=== PATIENT | female | born 1950 | race Caucasian/White ===

== ENCOUNTER 2016-10-20 18:17 | Inpatient (IN) | payer OTHER ==
[2016-10-20] MEDS ORDERED: NORCO-5 PO PRN (20:51)
[2016-10-20 21:12] LABS: HEMATOCRIT 33.1 % (37.0-47.0); HEMOGLOBIN 10.8 g/dL (12.0-16.0); MCH 29.1 PG (27-31); MCHC 32.6 g/dL (33-37); MCV 89.2 FL (81-99); MPV 8.8 FL (7.4-10.4); RBC 3.71 XMIL (4.2-5.4)
[2016-10-20 22:18] LABS: AGAP 11; ALBUMIN 3.9 g/dL (3.5-5.0); ALKALINE PHOSPHATASE 87 U/L (32-104); BUN 16 mg/dL (8-22); CALCIUM 8.7 mg/dL (8.8-10.2); CHLORIDE 105 mmol/L (98-107); COSMO 278; GOT 19 U/L (10-30); GPT 12 U/L (10-36); POTASSIUM 3.9 mmol/L (3.5-5.1); SODIUM 138 mmol/L (136-145); TCO2 22 mmol/L (25-35); TOTAL BILIRUBIN < 0.15 mg/dL (0.20-1.00); TOTAL PROTEIN 6.4 g/dL (6.3-8.3)
[2016-10-21] MEDS: LOVENOX SUBQ SCH ×4 (00:02→20:23)
[2016-10-21] MEDS: NS 1,000 ML IV SCH ×3 (00:02→20:23)
[2016-10-21 06:22] LABS: HEMATOCRIT 31.5 % (37.0-47.0); HEMOGLOBIN 10.1 g/dL (12.0-16.0); MCHC 32.1 g/dL (33-37); MCV 90.5 FL (81-99); MPV 9.2 FL (7.4-10.4); RBC 3.48 XMIL (4.2-5.4)
[2016-10-21 06:48] LABS: AGAP 5; ALBUMIN 3.4 g/dL (3.5-5.0); ALKALINE PHOSPHATASE 76 U/L (32-104); BUN 15 mg/dL (8-22); CALCIUM 8.4 mg/dL (8.8-10.2); CHLORIDE 110 mmol/L (98-107); CK PROFILE 96 U/L (24-173); COSMO 278; GOT 19 U/L (10-30); GPT 9 U/L (10-36); MAGNESIUM 2.1 mg/dL (1.5-2.7); POTASSIUM 4.3 mmol/L (3.5-5.1); SODIUM 139 mmol/L (136-145); TCO2 24 mmol/L (25-35); TOTAL BILIRUBIN < 0.15 mg/dL (0.20-1.00); TOTAL PROTEIN 5.7 g/dL (6.3-8.3)
[2016-10-21] MEDS: FIORICET PO PRN ×2 (07:45→21:36)
--- NOTE | 2016-10-21 08:12 | PROGRESS NOTE ---
DATE: 10/21/2016 SUBJECTIVE: Patient states she is feeling a little bit better. Denies any chest pain, palpitations. Currently notes her shortness of breath is really unchanged; it has not worsened or improved. OBJECTIVE: Vital signs: Temperature 97 degrees, pulse 76, respiratory rate 18, BP 114/57. General: Patient is well developed, well nourished. She is currently in no real respiratory distress. She is awake, alert, oriented. Neck: Supple. CV: Regular rate rhythm. Chest: Relatively clear. Abdomen: Soft, nondistended, nontender. Extremities: Moves all extremities. Neurologic: No focal neurological changes. Skin: Warm and dry. No rashes. LABS: CBC and CMP essentially unchanged and normal. ASSESSMENT: 1. Bilateral pulmonary emboli. 2. Chronic pain. 3. Shortness of breath secondary to pulmonary emboli. PLAN: We will continue patient on Lovenox today. Hopefully she can be discharged on Xarelto tomorrow, if Xarelto is affordable. We will ask social security assessor for assistance.
--- NOTE | 2016-10-21 08:27 | HISTORY AND PHYSICAL ---
CHIEF COMPLAINT: Pulmonary emboli. HISTORY OF PRESENT ILLNESS: Patient is a 65-year-old female who actually presented to the office a day or two ago. She was noted that she has had shortness of breath off and on for the past 3-4 weeks. Notes the symptoms of shortness of breath get severe enough that she is contemplating going to the ER or calling for an acute appointment. However, it would get better and she would then not make that phone call. The patient presented to the office. As noted, she had a D-dimer that was markedly elevated. Therefore, a CT was obtained which demonstrated saddle emboli. Therefore, she was admitted to the hospital. SOCIAL HISTORY: Patient is . She is retired. She does not smoke. MEDICATIONS: Nucynta 50 q.6 hours p.r.n., doxycycline 100 b.i.d. for the past 2 days secondary to increased cough and congestion, [place], butalbital. ALLERGIES: No known drug allergies. PAST MEDICAL HISTORY: Chronic pain. No history of hypertension or diabetes. FAMILY HISTORY: Noncontributory. REVIEW OF SYSTEMS: As noted above, patient notes she has dyspnea on exertion. Denies any true chest pain or palpitations. Positive shortness of breath. Denies any PND, orthopnea, or pedal edema. Denies headaches, blurred vision, or change in vision. Denies any focalized numbness, tingling, or weakness in her extremities. Denies any dysuria, frequency, or urgency. PHYSICAL EXAMINATION: VITAL SIGNS: Temperature 97.9, pulse 76, respiratory rate 18, BP 114/57, saturation 95% on room air. GENERAL: Patient is well developed, well nourished. Currently in no real respiratory distress. She is awake, alert, oriented. NECK: Supple. CV: Regular rate. CHEST: Relatively clear. No crackles. No wheezing. ABDOMEN: Soft, nondistended. EXTREMITIES: Moves all extremities. NEUROLOGIC: No changes. DIAGNOSTIC DATA: CBC essentially normal. CMP essentially normal. Glucose of 110. ASSESSMENT: 1. Saddle emboli. 2. Dyspnea on exertion secondary to saddle emboli. 3. Chronic pain. PLAN: We will admit patient to the hospital and place her on Lovenox. We will continue to follow. We will ask Entry Level Assistant Manager to assist to see if she can afford Xarelto.
[2016-10-22] MEDS: NS 1,000 ML IV SCH (07:28)
[2016-10-22] MEDS: LOVENOX SUBQ SCH (08:54)
[2016-10-22 11:44] VITALS: BP 148/65
--- NOTE | 2016-10-22 16:33 | DISCHARGE SUMMARY ---
ADMISSION DATE: 10/20/2016 DISCHARGE DATE: 10/22/2016 DISCHARGE DIAGNOSES: 1. Saddle emboli with bilateral pulmonary emboli, venous ultrasound still pending. 2. Shortness of breath. 3. Dyspnea on exertion. 4. Pain with inspiration. CONSULTATIONS: None. PROCEDURES: None. BRIEF HOSPITAL COURSE: Patient is an 65-year-old female who was admitted from the office after having an outpatient CT scan which demonstrated bilateral emboli with a saddle embolus. She was admitted and treated in the usual fashion. Placed on Lovenox which she tolerated very well. On discharge, she will be transitioned over to Xarelto. Discussed with patient that she needs to take it easy for the next few days and slowly reinstitute her home activities. DISPOSITION: Prescription was written for Xarelto 15 mg b.i.d. and Xarelto 20 mg once a day after 3 weeks. We will continue this for at least the next 6 months. Patient will follow up in the office for recheck and to have further coagulation workup done. TIME SPENT: 35 minutes spent in discharge.
--- NOTE | 2016-10-25 07:17 | Extremity Venous Study ---
PROCEDURE NAME: Venous U/S Bilateral Legs - 10/22/2016 VENOUS ULTRASOUND OF THE LOWER EXTREMITIES: FINDINGS: Deep veins in the right leg are compressible and there is normal color Doppler flow. The left common femoral vein and great saphenous vein are incompletely compressible with nonocclusive flow in the common femoral and complete obstruction in the saphenous. This is extensively present in the saphenous vein. IMPRESSION: Deep venous and superficial venous thrombosis on the left. No evidence of deep venous thrombosis on the right.
== END 2016-10-22 12:04 | disposition home or self-care (01) | DRG 176 ==
LOC: OBSVTOIN 18:17 → P.MEDSURG 18:17
PROVIDERS: ADMIT Family Medicine; ATTEND Family Medicine
DX: I26.92 Saddle embolus of pulmonary artery without acute cor pulmonale (principal); G89.29 Other chronic pain; Z79.899 Other long term (current) drug therapy
CPT/HCPCS: 36415; 80053; 82550; 83735; 84443; 84484; 85027; 93970; J1650; J7030

== ENCOUNTER 2017-02-14 11:46 | Observation (INO) ==
--- NOTE | 2017-02-14 12:22 | Diag Imaging Result Doc PS360 ---
CHEST-2 VIEWS - 02/14/2017 INDICATION: cough TECHNIQUE: COMPARISON: None FINDINGS: There is a large hiatal hernia behind the heart. No significant infiltrates in the lungs. Heart size and pulmonary vascularity is normal. No pneumothorax or pleural effusion. IMPRESSION: Large hiatal hernia. No acute disease. Electronically signed by Sam Blanco 02/14/2017 12:20 PM
[2017-02-14 12:31] LABS: MANUAL DIFF NEEDED? NO
[2017-02-14 12:33] LABS: BASO% 0.2 % (0.0-0.8); EOS# 0.17 X1000 (0.0-0.7); EOS% 1.6 % (0.0-10.0); HEMATOCRIT 32.8 % (37.0-47.0); HEMOGLOBIN 10.8 g/dL (12.0-16.0); IMM GRAN# 0.02 X1000 (0.0-0.04); IMM GRAN% 0.2 % (0.0-0.5); LYMPH# 1.12 X1000 (1.2-3.4); LYMPH% 10.4 % (20.5-51.1); MCH 27.6 PG (27-31); MCHC 32.9 g/dL (33-37); MCV 83.7 FL (81-99); MONO# 0.51 X1000 (0.11-0.59); MONO% 4.7 % (1.7-9.3); MPV 9.2 FL (7.4-10.4); NEUT% 82.9 % (42.2-75.2); PLT 309 X1000 (130-400); RBC 3.92 XMIL (4.2-5.4)
[2017-02-14 12:53] LABS: AGAP 12; ALBUMIN 3.7 g/dL (3.5-5.0); ALKALINE PHOSPHATASE 79 U/L (32-104); BUN 9 mg/dL (8-22); CALCIUM 8.3 mg/dL (8.8-10.2); CHLORIDE 98 mmol/L (98-107); COSMO 268; GOT 31 U/L (10-30); GPT 18 U/L (10-36); POTASSIUM 3.2 mmol/L (3.5-5.1); SODIUM 134 mmol/L (136-145); TCO2 24 mmol/L (25-35); TOTAL PROTEIN 6.6 g/dL (6.3-8.3)
[2017-02-14] MEDS ORDERED: VANCOMYCIN 1 GM/NS 1 GM/250 ML IVPB IV ONE (12:58)
[2017-02-14] MEDS ORDERED: ZOSYN 3.375 GM/NS 3.375 GM/50 ML IVPB IV ONE (12:58)
[2017-02-14 13:10] LABS: URINE CULTURE PL NEEDED? NO; URINE SOURCE CATH
[2017-02-14 13:15] LABS: INR 1.15 (0.86-1.15)
[2017-02-14 13:16] LABS: PTT PL 38.7 Seconds (22.6-43.9)
[2017-02-14 13:30] LABS: BILIRUBIN URINE NEGATIVE (NEGATIVE); BLOOD URINE NEGATIVE (NEGATIVE); CLARITY CLEAR (CLEAR); COLOR YELLOW; GLUCOSE URINE NEGATIVE (NEGATIVE); LEUKOCYTES URINE NEGATIVE (NEGATIVE); NITRITE URINE NEGATIVE (NEGATIVE); PROTEIN URINE NEGATIVE (NEGATIVE); UROBILINOGEN URINE NORMAL
[2017-02-14 13:31] LABS: URINE CAST NONE SEEN /LPF; URINE CRYSTAL NONE SEEN /HPF; URINE EPITHELIAL CELLS <10 /HPF (<10); URINE RBC <10 /HPF (<10); URINE WBC <10 /HPF (<10)
[2017-02-14 13:46] LABS: CK INDEX 1.3 (0.0-2.5); CK-MB 2.94 ng/mL (0.0-5.0)
[2017-02-14] MEDS ORDERED: TYLENOL PO ONE (14:08)
--- NOTE | 2017-02-14 14:49 | PROVIDER DOCUMENTATION ---
This chart was entered by Karen Mendoza Scribe, acting as scribe for Conor Gillis MD. HPI-General Adult - General Chief Complaint: Fever Stated Complaint: FEVER Time Seen by Provider: 02/14/17 12:02 Source: patient Allergies/Adverse Reactions: Patient Allergies Allergy/AdvReac Type Severity Reaction Status Date / Time No Known Allergies Allergy Verified 10/20/16 23:14 Home Medications: Home Medication List Medication Instructions Recorded Confirmed Last Taken Type Alendronate Sodium 70 mg PO ONCE MDD weekly 02/14/17 02/14/17 Unknown History Desvenlafaxine Succinate [Pristiq 100 mg PO DAILY 02/14/17 02/14/17 Unknown History ER] Hydrocodone Bit/Acetaminophen 1 each PO Q2-4H PRN PRN 02/14/17 02/14/17 Unknown History [Hydrocodon-Acetaminophen 5-325] Lurasidone HCl [Latuda] 20 mg PO DAILY 02/14/17 02/14/17 Unknown History Methocarbamol 750 mg PO Q6H PRN 02/14/17 02/14/17 Unknown History Ospemifene [Osphena] 60 mg PO DAILY 02/14/17 02/14/17 Unknown History Pregabalin [Lyrica] 150 mg PO TID 02/14/17 02/14/17 Unknown History Rabeprazole Sodium 20 mg PO DAILY 02/14/17 02/14/17 Unknown History Rivaroxaban [Xarelto] 20 mg PO DAILY 02/14/17 02/14/17 Unknown History Tapentadol [Nucynta] 50 mg PO DAILY 02/14/17 02/14/17 Unknown History Thyroid 50 microgm PO DAILY 02/14/17 02/14/17 Unknown History Zolpidem [Ambien] 10 mg PO HS 02/14/17 02/14/17 Unknown History - History of Present Illness -Gen Adult Nature of Presenting Problems: Pt is 66 y/o F presents to the ED with fever, cough, sore throat, and body aches. Pt states symptoms have been present since last night. Pt denies N and V. Pt states she was admitted 2 mths ago for multiple pulmonary emboli in bilateral lungs.. Location of Pain/Injury: reports: generalized Pain Radiation: reports: no radiation Quality of Pain: reports: aching Severity: reports: mild Onset/Duration: reports: last night Timing: reports: still present Context/Activities at Onset: reports: light activity Modifying Factors: improves with: nothing Associated Symptoms: reports: cough, fever/chills (F), muscle aches, weakness, trouble walking, other (sore throat). denies: anxiety, arm pain, back/neck pain , chest pain, constipation, diaphoresis, diarrhea, dizziness, EENT symptoms, fatigue, genitourinary problems, headaches, heartburn, joint pain, loss of appetite, malaise, sinus congestion/drainage, nausea, rash, seizure, shortness of breath, sensory/motor loss, pain with inspiration, swelling/mass in abdomen, syncope, vomiting Similar Symptoms Previously?: Yes Recently seen or treated by another doctor?: No Review of Systems - Adult - REVIEW OF SYSTEMS - ADULT Constitutional: reports: fever. denies: chills Eyes: denies: blurred vision, double vision Ears, Nose, Mouth & Throat: reports: throat pain. denies: ear pain, nose pain Cardiovascular: reports: irregular heart rate (tachy). denies: chest pain, heart murmur Respiratory: reports: cough. denies: shortness of breath, wheezing Gastrointestinal: denies: abdominal pain, diarrhea, nausea, vomiting Genitourinary: denies: dysuria, hematuria Musculoskeletal: reports: muscle aches, muscle weakness. denies: bone pain, joint pain, neck pain Integumentary: denies: hives, itching, rash Neurological: denies: dizziness/vertigo, headache/migraines, slurred speech, syncope Psychiatric: denies: anxiety, depression, suicidal thoughts Endocrine: reports: no symptoms reported Hematologic/Lymphatic: reports: no symptoms reported Allergic/Immunologic: reports: no symptoms reported All Other Systems: Reviewed and Negative Past History - Adult - PAST MEDICAL HISTORY-ADULT Review of Records: reports: Nursing Assessment Review, Medications Reviewed, Social history reviewed & non-contributory. Major Childhood Illnesses: reports: denies history Cardiovascular: reports: denies history Respiratory: reports: asthma Gastrointestinal: reports: denies history Obstetrical/Gynecological: reports: denies history Genitourinary: reports: denies history Musculoskeletal: reports: denies history Neurological: reports: denies history Endocrine/Immune: reports: denies history Other Conditions: reports: denies history - PRIOR SURGERIES/PROCEDURES Surgical/Procedure History: reports: reviewed, not pertinent - IMMUNIZATION STATUS Childhood Immunizations: See Nurse Assessment Flu Vaccine: See Nurse Assessment - FAMILY HISTORY Family History: reviewed, not pertinent - SOCIAL HISTORY Smoking: denies Substance Use: alcohol Alcohol Use Frequency: occasionally Number of drinks per typical drinking period:: 2 drinks Living Situation: family Physical Exam-General - PHYSICAL EXAM-ADULT Initial Vital Signs Reviewed: Yes - CONSTITUTIONAL General Appearance: alert, no apparent distress - EYES Eyes: PERRL/EOMI, pink conjunctivae - HEAD, EARS, NOSE, MOUTH & THROAT HENMT: normal ENT inspection - NECK Neck: normal inspection - RESPIRATORY Respiratory: chest non-tender, lungs clear, normal breath sounds - CARDIOVASCULAR Cardiovascular: normal peripheral pulses, tachycardia - GASTROINTESTINAL (ABDOMEN) Abdominal Exam: normal bowel sounds, non tender, soft - LYMPHATIC Lymphatic: no adenopathy - MUSCULOSKELETAL Back Exam: normal inspection Extremity: non-tender, normal inspection - SKIN Integumentary: normal color, normal turgor, warm/dry - NEUROLOGIC Neurologic: grossly normal - PSYCHIATRIC Psych/Mental Status: normal mood/affect, oriented x 3 Progress - PLAN OF CARE/RESULTS Progress/Plan/Lab Results: Vital Signs - 8 hr 02/14/17 11:57 Temperature 100.5 F H Pulse Rate 122 H Respiratory Rate 20 Blood Pressure 127/73 O2 Sat by Pulse Oximetry 91 L Orders Category Date Time Status Saline Loc NOW Care 02/14/17 12:04 Active CHEST-2 VIEWS [RAD] Stat Exams 02/14/17 12:04 Ordered BLOOD CULTURE [BLDCUL] Stat Lab 02/14/17 12:04 Ordered CBC WITH DIFF [HEME] Stat Lab 02/14/17 12:04 Ordered COMPREHENSIVE METABOLIC PANEL [CHEM] Stat Lab 02/14/17 12:04 Ordered LACTATE, PLASMA [CHEM] Stat Lab 02/14/17 12:03 Ordered Pulse Oximetry Stat Oth 02/14/17 12:04 Active Result Diagrams: 02/14/17 12:20 02/14/17 12:20 - XRAY 1 XRAY Study: Chest Impression: Abnormal XRAY Interpretation: large hiatal hernia. no acute disease - CONSULTS/PCP/HOSPITALIST Notification #1 *Consult/PCP/Hospitalist*: Dr. Oliva Time Discussed: :17 Reason/Comments: Dr. Gillis consulted Dr. Oliva about Pt #2 Consult: [place] Time Discussed: 14:47 (Agrees that sounds viral) Consult Disposition: F/U in office Departure - Departure Date of Disposition Decision: 02/14/17 Time of Disposition Decision: 14:48 DIAGNOSIS: Viral syndrome Fever Qualifiers: Fever type: due to other condition Qualified Code(s): R50.81 - Fever presenting with conditions classified elsewhere Disposition: HOME 01 Certified Medical Emergency: Urgent Condition: Good Additional Freetext Instructions: ED Follow Up Instructions: You have been treated by a care provider in the Emergency Department. These instructions are being provided to you so you can have an understanding of how to care for yourself upon discharge. Upon discharge from the Emergency Department, you are responsible for making arrangements for follow-up care by a physician of your choice. Take all prescribed medications as directed. Return to the Emergency Department immediately for any new or worsening symptoms. You may call the Physician Referral phone number at [phone] to obtain a list of Physicians who are taking new patients. Referrals and Follow-Ups: Abel Oliva MD [Primary Care Provider] - Discharge Education: Fever, Adult, [id number], Viral Infections, [id number] - Critical Care Note This patient required my direct & personal management of CC.: No This chart was documented by the indicated scribe, (Karen Mendoza Scribe) and accurately reflects the services I performed and decisions made by me, Conor Gillis MD, as attested by the provider's signature.
[2017-02-14] MEDS ORDERED: NS 1,000 ML IV ONE ×2 (16:09→19:59)
[2017-02-14] MEDS ORDERED: TYLENOL PO PRN (16:09)
[2017-02-14] MEDS ORDERED: MOTRIN PO PRN (16:09)
[2017-02-14] MEDS ORDERED: ZOFRAN IV PRN (16:09)
[2017-02-14] MEDS ORDERED: PNEUMOVAX 23 IM ONE (18:30)
[2017-02-14] MEDS: DUONEB (A & A) INH SCH (21:18)
[2017-02-14 21:19] LABS: URINE CULTURE PL NEEDED? NO
[2017-02-14 21:32] LABS: BILIRUBIN URINE NEGATIVE (NEGATIVE); BLOOD URINE NEGATIVE (NEGATIVE); CLARITY CLEAR (CLEAR); COLOR YELLOW; GLUCOSE URINE NEGATIVE (NEGATIVE); LEUKOCYTES URINE NEGATIVE (NEGATIVE); NITRITE URINE NEGATIVE (NEGATIVE); PROTEIN URINE NEGATIVE (NEGATIVE); SP GRAVITY URINE 1.015; UROBILINOGEN URINE NORMAL
[2017-02-14 21:33] LABS: URINE CAST NONE SEEN /LPF; URINE CRYSTAL NONE SEEN /HPF; URINE EPITHELIAL CELLS <10 /HPF (<10); URINE RBC <10 /HPF (<10); URINE SOURCE CLEAN CATCH; URINE WBC <10 /HPF (<10)
[2017-02-14] MEDS ORDERED: NORCO-5 PO PRN (23:19)
[2017-02-14] MEDS ORDERED: ROBAXIN PO PRN (23:30)
[2017-02-15] MEDS ORDERED: AMBIEN PO SCH (00:30)
[2017-02-15] MEDS: DUONEB (A & A) INH SCH (03:32)
[2017-02-15 07:09] LABS: HEMATOCRIT 28.3 % (37.0-47.0); HEMOGLOBIN 8.9 g/dL (12.0-16.0); MCH 26.8 PG (27-31); MCHC 31.4 g/dL (33-37); MCV 85.2 FL (81-99); MPV 9.5 FL (7.4-10.4); RBC 3.32 XMIL (4.2-5.4)
[2017-02-15 07:22] LABS: AGAP 8; ALBUMIN 2.9 g/dL (3.5-5.0); ALKALINE PHOSPHATASE 59 U/L (32-104); BUN 12 mg/dL (8-22); CALCIUM 7.4 mg/dL (8.8-10.2); CHLORIDE 109 mmol/L (98-107); COSMO 281; GOT 24 U/L (10-30); GPT 13 U/L (10-36); HDL 62 mg/dL (45-65); LDL 115 mg/dL; POTASSIUM 3.1 mmol/L (3.5-5.1); SODIUM 141 mmol/L (136-145); TCO2 24 mmol/L (25-35); TOTAL BILIRUBIN < 0.15 mg/dL (0.20-1.00); TRIGLYCERIDES 110 mg/dL (35-135); VLDL 22 mg/dL
[2017-02-15] MEDS: LYRICA PO SCH ×2 (08:48→13:04)
--- NOTE | 2017-02-15 08:57 | HISTORY AND PHYSICAL ---
CHIEF COMPLAINT: Fever. HISTORY OF PRESENT ILLNESS: The patient is a 66-year-old female, who presented to the emergency department with complaints of fevers, chills. Notes that when her fever was up, she was very weak and tired and felt as though she was having difficulty speaking, although her daughter noted that her speech was normal, just slow. She was confused only during the febrile illness after which she was back to normal. She has had a cough for the past 3 days. She has had increased shortness of breath. She has had bilateral hip pain while her fever is up. She has had a headache as well. ALLERGIES: No known drug allergies. MEDICATIONS: 1. Fosamax weekly. 2. Pristiq. 3. Hydrocodone. 4. Latuda. 5. Osphena. 6. Lyrica. 7. Xarelto. 8. Nucynta. 9. Synthroid 50. PAST MEDICAL HISTORY: Chronic depression, anxiety, insomnia, osteoporosis, and hypothyroid. FAMILY HISTORY: Noncontributory. SOCIAL HISTORY: She is and lives at home. Does not smoke, but she does drink alcohol occasionally. REVIEW OF SYSTEMS: As noted above. Denies any recurrent fevers, although has had fever for the past 2 days. She does have recurrent headaches, although it has been worse in the past 2 days. Denies any focalized weakness. Notes that she has been generally weak during the past 2 or 3 days. Positive cough but nonproductive. Denies any true shortness of breath or dyspnea on exertion. Denies any chest pains or palpitations. Denies dysuria, frequency, urgency. Denies hesitancy, polyuria, polydipsia. Denies skin rashes, weight loss, or weight gain. PHYSICAL: Vital Signs: Temperature 103.2, pulse 122, respiratory 20, BP 127/73. Sat 91% on room air. General: Patient is awake, alert. She is currently in no respiratory distress. Pleasant to talk with. She is in her usual state. HEENT: Normocephalic, atraumatic. PIOTR. Neck: Supple. CV: Regular rate. Chest: Relatively clear, nonlabored, no wheezing. Abdomen: Soft. Extremities: Moves all extremities well. Neurologic: No focal changes. Skin: Warm and dry. No rashes. LABORATORY DATA: Potassium 3.2. Sodium 134. WBCs 10, hemoglobin and hematocrit 10 and 32. ASSESSMENT: 1. Febrile illness. 2. Tachycardia. 3. Cough. 4. Shortness of breath. 5. Hypertension. PLAN: We will admit the patient to the hospital. We will not start antibiotics currently as this certainly appears to be a viral illness. She did have 1 episode of hypotension in the ER, this could have been secondary to her fever or medication effect. Her blood pressures have been fine since. We will continue to follow. Further orders as needed. cc: Abel Oliva MD
[2017-02-15] MEDS ORDERED: PRILOSEC PO SCH (09:00)
[2017-02-15] MEDS ORDERED: PRISTIQ ER PO SCH (09:00)
[2017-02-15] MEDS ORDERED: LATUDA PO SCH ×2 (09:00→21:00)
[2017-02-15] MEDS ORDERED: NS 250 ML IV SCH (09:44)
--- NOTE | 2017-02-15 10:58 | DISCHARGE SUMMARY ---
ADMISSION DATE: 02/14/2017 DISCHARGE DATE: 02/15/2017 DISCHARGE DIAGNOSES: 1. Hypotension. 2. Viral syndrome. 3. Fever resolved. 4. Headache. 5. Tachycardia resolved. 6. Cough. CONSULTATIONS: None. PROCEDURES: None. BRIEF HOSPITAL COURSE: Patient is a 66-year-old female, who is admitted as noted in the HPI. Treated in the usual fashion. She was placed on a regular diet. She was given 1 dose of antibiotics in the ER. This was not continued on the floor. She was giving a normal saline bolus to help with her blood pressure as she had not been eating and drinking well. On discharge, she is awake, alert, oriented. She is in no distress. She was able to ambulate the halls without any difficulty. DISPOSITION: She will be discharged home. She will not be started on antibiotics as this certainly appears more viral in nature and she will be able to continue her other home medications at home. DISCHARGE INSTRUCTIONS: Patient will follow up in the office in 1-2 weeks sooner should symptoms worsen or return. She will need to continue regular diet at home. TIME SPENT: Thirty-five minutes was spent in discharge planning. cc: Abel Oliva MD
[2017-02-15 11:47] VITALS: BP 121/51
[2017-02-15] MEDS ORDERED: XARELTO PO SCH (17:00)
[2017-02-15] MEDS ORDERED: NUCYNTA PO SCH (21:00)
[2017-02-15] MEDS ORDERED: RESTASIS 0.05% OPH DROPS OPH SCH (21:00)
[2017-02-19] MEDS ORDERED: FOSAMAX PO SCH (06:00)
== END 2017-02-15 15:30 | disposition home or self-care (01) ==
LOC: P.ED 11:46 → INTOOBSV 16:37 → P.MEDSURG 16:37
PROVIDERS: ADMIT Family Medicine; ATTEND Family Medicine